=== PATIENT | male | born 1995 | race Hispanic/Latino ===

== ENCOUNTER 2024-12-05 13:41 | Emergency (ER) | payer SELFPAY ==
[~2024-12-05] VITALS: Ht 182.9 cm; Wt 83.9 kg
[2024-12-05 13:41] VITALS: BP 150/90; PULSE 66; RESP 18; TEMP 98; O2SAT 98
[2024-12-05 14:40] VITALS: BP 156/89; PULSE 74; RESP 18; O2SAT 97
[2024-12-05] MEDS ORDERED: AUGMENTIN 875MG ONE (15:06)
[2024-12-05] MEDS: AUGMENTIN 875MG PO STA (15:09)
[2024-12-05] MEDS ORDERED: AMOX1TAB12 PO (15:10)
[2024-12-05 15:12] VITALS: BP 144/88; PULSE 69; RESP 18; O2SAT 99
== END 2024-12-05 15:13 | disposition home or self-care (01) ==
LOC: ER 13:41
DX: K01.1 Impacted teeth (principal)
CPT/HCPCS: 99283